=== PATIENT | male | born 1955 | race Two or more races ===

== ENCOUNTER 2016-12-02 21:05 | Observation (INO) | payer SELFPAY ==
--- NOTE | 2016-12-02 21:57 | EDPHY ---
H & P Stated Complaint: chest pain x1 hour HPI/ROS: HPI CHIEF COMPLAINT: Chest Pain HISTORY OF PRESENT ILLNESS: This patient is 61-year-old male, was in [place] he tells me he is up here visiting his cousin, he lives in [place], he tells me has significant past medical history of AFib, coronary artery disease with 1 stent in his LAD, on Coumadin, COPD on 3 L nasal cannula, CHF and takes Lasix, he presents to the emergency room tonight for chest discomfort he describes as a crushing chest pain left side of his chest that radiates to his left shoulder and down his left arm as well as his left jaw. Patient tells me that he took 3 nitroglycerin prior to arrival this did slightly improve his chest pain however it is still present. Past Medical History: AFib status post ablation, drug eluting stent in his LAD , coronary artery disease, CHF, COPD on 3 L nasal cannula, stomach CA, prostate CA Past Surgical History: Drug eluting stent to LAD, AFib ablation, left testicle removal Social History: lives in [place], states he is here visiting his cousin denies drugs, alcohol, tobacco products Family History: noncontributory ROS REVIEW OF SYSTEMS: A comprehensive 10 point review of systems is otherwise negative aside from elements mentioned in the history of present illness. Exam Constitutional triage nursing summary reviewed, vital signs reviewed, awake/ alert. Eyes normal conjunctivae and sclera, EOMI, PERRLA. HENT normal inspection, atraumatic, moist mucus membranes, no epistaxis, neck supple/ no meningismus, no raccoon eyes. Respiratory clear to auscultation bilaterally, normal breath sounds, no respiratory distress, no wheezing. Cardiovascular rate normal, regular rhythm, no murmur, no edema, distal pulses normal. Gastrointestinal soft, non-tender, no rebound, no guarding, normal bowel sounds, no distension, no pulsatile mass. Genitourinary no CVA tenderness. Musculoskeletal no midline vertebral tenderness, full range of motion, no calf swelling, no tenderness of extremities, no meningismus, good pulses, neurovascularly intact. Skin pink, warm, & dry, no rash, skin atraumatic. Neurologic awake, alert and oriented x 3, AAOx3, moves all 4 extremities equally, motor intact, sensory intact, CN II-XII intact, normal cerebellar, normal vision, normal speech. Psychiatric normal mood/affect. Heme/Lymph/Immune no lymphadenopathy. Differential diagnosis includes but is not limited to: ACS, atypical chest pain , pneumothorax, pneumonia, pulmonary embolism, aortic dissection, congestive heart failure, tumor, musculoskeletal pain, esophageal pain, GERD, peptic ulcer disease, pancreatitis Medical Decision Making: This patient had an IV established will obtain blood work, patient be put on a full diagnostic cardiac sonographer, patient be given full-dose aspirin and nitroglycerin for chest pain. Will obtain EKG to rule out acute coronary syndrome, he will need a chest x-ray blood work and troponin most likely this patient will need to be admitted as he is having discomfort in his chest that is consistent with angina and has underlying coronary artery disease. Re-evaluation: EKG interpretation by me on record in [employer] system. Impression time of EKG is 11/18/1936 this is sinus tachycardia this is a rate of 105, a Q-waves present in inferior leads consistent with an old injury, LVH is present I do not appreciate ST elevation. ED x-ray chest one view: Poor inspiratory effort, large left gastric bubble, otherwise no acute cardiopulmonary disease. 2325: At this time I spoke with the hospitalist service: they agreed to admit this patient for chest pain and serial enzymes and cardiac evaluation rule out. Here in the emergency room I have not found anything acute that explains his chest pain specifically his EKG is nonischemic, does not have acute coronary syndrome his troponin is negative. Did feel better after nitroglycerin. He has received full-dose aspirin here. He understands the be admitted to the telemetry floor. Source: Patient - Personal History Current Tetanus/Diphtheria Vaccine: Unsure Current Tetanus Diphtheria and Acellular Pertussis (TDAP): Unsure - Medical/Surgical History Hx Asthma: Yes Hx Chronic Respiratory Disease: Yes Hx Diabetes: No Hx Cardiac Disease: Yes Hx Renal Disease: No Hx Cirrhosis: No Hx Alcoholism: No Hx HIV/AIDS: No Hx Splenectomy or Spleen Trauma: No Other PMH: 3 [place], stent placed, ablasion 07/2016, stomach CA, prostate CA, left testical CA - Social History Smoking Status: Never smoked Constitutional: Initial Vital Signs Temperature (C) 36.3 C 12/02/16 21:09 Heart Rate 111 H 12/02/16 21:09 Respiratory Rate 18 12/02/16 21:09 Blood Pressure 111/82 H 12/02/16 21:09 O2 Sat (%) 93 12/02/16 21:09 O2 Delivery Mode Nasal Cannula O2 (L/minute) 3 Allergies/Adverse Reactions: azithromycin Allergy (Verified 12/02/16 21:12) diphenhydramine HCl [From Benadryl] Allergy (Verified 12/02/16 21:12) iodine Allergy (Verified 12/02/16 21:12) metoclopramide HCl [From Reglan] Allergy (Verified 12/02/16 21:12) Penicillins Allergy (Verified 12/02/16 21:12) shellfish derived Allergy (Verified 12/02/16 21:12) contrast dye Allergy (Uncoded 12/02/16 21:12) Home Medications: Medication Instructions Recorded Albuterol 12/02/16 Coumadin 12/02/16 Inderal LA 12/02/16 Lasix 12/02/16 Nebulizer 12/02/16 Plavix 12/02/16 Potassium 12/02/16 Medical Decision Making - Data Points Laboratory Results: Laboratory Results 12/02/16 22:15 12/02/16 22:15 12/02/16 22:15 WBC 9.80 H 10^3/uL (3.80-9.50) RBC 4.86 10^6/uL (4.40-6.38) Hgb 11.9 L g/dL (13.7-17.5) Hct 36.9 L % (40.0-51.0) MCV 75.9 L fL (81.5-99.8) MCH 24.5 L pg (27.9-34.1) MCHC 32.2 L g/dL (32.4-36.7) RDW 18.6 H % (11.5-15.2) Plt Count 269 10^3/uL (150-400) MPV 9.2 fL (8.7-11.7) Neut % (Auto) 66.7 % (39.3-74.2) Lymph % (Auto) 20.4 % (15.0-45.0) [place] % (Auto) 12.1 % (4.5-13.0) Eos % (Auto) 0.2 L % (0.6-7.6) Baso % (Auto) 0.2 L % (0.3-1.7) Nucleat RBC Rel Count 0.0 % (0.0-0.2) Absolute Neuts (auto) 6.53 H 10^3/uL (1.70-6.50) Absolute Lymphs (auto) 2.00 10^3/uL (1.00-3.00) Absolute Monos (auto) 1.19 H 10^3/uL (0.30-0.80) Absolute Eos (auto) 0.02 L 10^3/uL (0.03-0.40) Absolute Basos (auto) 0.02 10^3/uL (0.02-0.10) Absolute Nucleated RBC 0.00 10^3/uL (0-0.01) Immature Gran % 0.4 % (0.0-1.1) Immature Gran # 0.04 10^3/uL (0.00-0.10) PT 14.1 SEC (12.0-15.0) INR 1.10 (0.83-1.16) APTT 25.1 SEC (23.0-38.0) Sodium 142 mEq/L (134-144) Potassium 4.3 mEq/L (3.5-5.2) Chloride 110 mEq/L (97-110) Carbon Dioxide 23 mEq/l (22-31) Anion Gap 9 mEq/L (8-16) BUN 15 mg/dL (7-23) Creatinine 0.7 mg/dL (0.7-1.3) Estimated GFR > 60 Glucose 111 H mg/dL (70-100) Calcium 9.8 mg/dL (8.5-10.4) Magnesium 2.0 mg/dL (1.6-2.3) Total Bilirubin 0.5 mg/dL (0.1-1.4) Conjugated Bilirubin 0.3 mg/dL (0.0-0.5) Unconjugated Bilirubin 0.2 mg/dL (0.0-1.1) AST 52 IU/L (17-59) ALT 68 IU/L (21-72) Alkaline Phosphatase 95 IU/L (38-126) Creatine Kinase 40 IU/L (0-224) CK-MB (CK-2) Fraction 0.34 ng/mL (0-3.19) Troponin I < 0.012 ng/mL (0-0.034) NT-Pro-B Natriuret Pep 179 H pg/mL (0-125) Total Protein 7.3 g/dL (6.3-8.2) Albumin 3.7 g/dL (3.5-5.0) Lipase 71.0 IU/L (23-300) Medications Given: Discontinued Medications Aspirin (Aspirin) 324 mg PO EDNOW ONE Stop: 12/02/16 22:01 Last Admin: 12/02/16 22:45 Dose: 324 mg Sodium Chloride (Ns) 1,000 mls @ 0 mls/hr IV ONCE ONE PRN Reason: As Directed Stop: 12/02/16 22:01 Last Admin: 12/02/16 22:56 Dose: 1,000 mls Nitroglycerin (Nitrostat) 0.4 mg SL EDNOW ONE Stop: 12/02/16 22:59 Last Admin: 12/02/16 22:51 Dose: 0.4 mg Departure - Departure Disposition: [facility] Inpatient Acute Clinical Impression: Chest pain Qualifiers: Chest pain type: unspecified Qualifier Code: (R07.9) Chest pain, unspecified Condition: Fair
[2016-12-02] MEDS ORDERED: ASPIRIN 81 MG CHEWABLE TAB PO ONE (22:00)
[2016-12-02] MEDS ORDERED: NITROGLYCERIN 0.4 MG BTL SL PRN (22:00)
[2016-12-02] MEDS ORDERED: NS 1,000 ML IV ONE (22:00)
[2016-12-02 22:35] LABS: % IMMATURE GRANULYOCYTES 0.4 % (0.0-1.1); ABSOLUTE IMMATURE GRANULOCYTES 0.04 10^3/uL (0.00-0.10); ADD DIFF? NO; ADD MORPH? NO; ADD SCAN? NO; ATYPICAL LYMPHOCYTE FLAG 10 (0-99); FRAGMENT RBC FLAG 20 (0-99); HEMATOCRIT 36.9 % (40.0-51.0); HEMOGLOBIN 11.9 g/dL (13.7-17.5); LEFT SHIFT FLG 0 (0-99); LIPEMIA HEMOLYSIS FLAG 80 (0-99); MEAN CELL HEMOGLOBIN 24.5 pg (27.9-34.1); MEAN CELL HEMOGLOBIN CONCENTR. 32.2 g/dL (32.4-36.7); MEAN CELL VOLUME 75.9 fL (81.5-99.8); MEAN PLATELET VOLUME 9.2 fL (8.7-11.7); PLATELET CLUMPS FLAG 0 (0-99); PLATELET COUNT 269 10^3/uL (150-400); RED BLOOD CELL COUNT 4.86 10^6/uL (4.40-6.38); RED CELL DISTRIBUTION WIDTH 18.6 % (11.5-15.2)
[2016-12-02 22:47] LABS: INR 1.1 (0.83-1.16); PROTIME(PATIENT) 14.1 SEC (12.0-15.0)
[2016-12-02 22:48] LABS: ALANINE AMINOTRANSFERASE 68 IU/L (21-72); ALBUMIN 3.7 g/dL (3.5-5.0); ALKALINE PHOSPHATASE 95 IU/L (38-126); ANION GAP 9 mEq/L (8-16); APTT 25.1 SEC (23.0-38.0); ASPARTATE AMINOTRANSFERASE 52 IU/L (17-59); BILIRUBIN,TOTAL 0.5 mg/dL (0.1-1.4); BILIRUBIN-CONJUGATED 0.3 mg/dL (0.0-0.5); BILIRUBIN-UNCONJUGATED 0.2 mg/dL (0.0-1.1); CALCIUM 9.8 mg/dL (8.5-10.4); CARBON DIOXIDE 23 mEq/l (22-31); CHLORIDE 110 mEq/L (97-110); CREATININE 0.7 mg/dL (0.7-1.3); GLOMERULAR FILTRATION RATE > 60; GLUCOSE 111 mg/dL (70-100); POTASSIUM 4.3 mEq/L (3.5-5.2); SODIUM 142 mEq/L (134-144); TOTAL PROTEIN 7.3 g/dL (6.3-8.2)
[2016-12-02] MEDS ORDERED: NITROGLYCERIN 0.4 MG BTL SL ONE (22:58)
[2016-12-02 23:00] LABS: CREATINE KINASE-MB FRACTION 0.34 ng/mL (0-3.19); TROPONIN I < 0.012 ng/mL (0-0.034)
--- NOTE | 2016-12-02 23:22 | DX ---
AP Portable Chest December 02, 2016 Indication: Chest pain. Findings: There is significant decreased lung volume. There is atelectasis at both lung bases. No pneumonia. No effusion. Mediastinum is grossly normal. Bones are normal. Impression: Predominant abnormality is significant decreased lung volume.
[2016-12-03] MEDS ORDERED: ONDANSETRON DISINTEGRATING 4 MG TAB PO PRN (00:49)
[2016-12-03] MEDS ORDERED: ONDANSETRON 4 MG/2 ML VIAL IVP PRN (00:49)
[2016-12-03] MEDS ORDERED: ACETAMINOPHEN 325 MG TAB PO PRN (00:49)
--- NOTE | 2016-12-03 00:52 | PDGENHP ---
History and Physical - Chief Complaint "crushing left sided chest pain radiating to jaw and left arm" - History of Present Illness This is a 61 yo m who presents complaining of left sided chest pain radiating to his left arm and jaw. He states it only partially responded to 3 nitroglycerin he took at home prior to coming to the hospital. He states he has a history of CAD with a stent to the LAD complicated by in stent restenosis. He states this was performed in the last several months, in [place]. He states that he has not had follow up with a local routing clerk since then and that his medications are all prescribed by the doctor in [place]. He notes he also has a fib that has required ablation and coumadin but no other medications, and also has CHF, stomach and prostate cancer. He is in a wheelchair due to having multiple strokes with "left sided deficits". He states that the last stroke was a year ago. He is unable to give me any names of local doctors that he has seen other than his primary care doctor who he states was Dr. Rodriguez, and recently . He was noted to have multiple areas on his chest and arms where ecg stickers and bandages were recently placed. IV access was very difficult due to what appeared to be multiple prior IVs placed recently. I did then look up patient on [facility], and found that in the last month, which is the only time period for which we have records for him, he has been in different hospitals essentially continuously in [place] since 11/12. He was seen in [place] ER for chest pain on 11/12, discharged and went to [facility] same day for chest pain and was admitted at that time. His hospital course was complicated by in house stroke alert and he had a respiratory arrest following IV contrast reaction. He was discharged from [facility] on 11/18 and [facility]. There he was confronted after finding that he was admitted under one name, and had an implanted loop recorder that was under another name. He left there AMA on 11/21. On 11/23 he went to [facility] again with chest pain, and left there AMA on 11/28 after again being confronted with concerns that he is malingering. In these multiple stays he has had at least [address] , multiple stress tests including PET myocardium stress on 11/28, multiple MRIs requiring sedation and multiple echo's in just the last 3 weeks. He has gone under the names of Mahin Rodriguez, Alex Busch and Alex Ross in the last month. Loop is under the name Narayan. When confronted with all of this, he did not offer any explanation, but did offer that he understood why no aggressive testing would be performed and acknowledged understanding that if his next troponin was negative and no events occurred on ecg he would be discharged in the morning. History Information - Allergies/Home Medication List Allergies/Adverse Reactions: azithromycin Allergy (Verified 12/02/16 21:12) diphenhydramine HCl [From Benadryl] Allergy (Verified 12/02/16 21:12) iodine Allergy (Verified 12/02/16 21:12) metoclopramide HCl [From Reglan] Allergy (Verified 12/02/16 21:12) Penicillins Allergy (Verified 12/02/16 21:12) shellfish derived Allergy (Verified 12/02/16 21:12) contrast dye Allergy (Uncoded 12/02/16 21:12) Home Medications: Albuterol 12/02/16 [Last Taken Unknown] Coumadin 12/02/16 [Last Taken Unknown] Inderal LA 12/02/16 [Last Taken Unknown] Lasix 12/02/16 [Last Taken Unknown] Nebulizer 12/02/16 [Last Taken Unknown] Plavix 12/02/16 [Last Taken Unknown] Potassium 12/02/16 [Last Taken Unknown] I have personally reviewed and updated: family history, medical history, social history, surgical history - Past Medical History atrial fibrillation, coronary artery disease, cancer (stomach and prostate), CHF (most recent echo showing EF of 50-55%), CVA, hypertension, hyperlipidemia, liver disease (hepatitis C), psychiatric history (factitious disorder/ malingering) Additional medical history: it should be noted that all the medical history listed is limited by patients presumed malingering - Surgical History Reports: angioplasty Additional surgical history: left testicle removal. stomach "liposuction" for stomach cancer. prostate cancer "beads" - Family History Positive for: CAD - Social History Smoking Status: Never smoked Alcohol Use: None Drug Use: None Additional social history: suspect patient is homeless though he states he lives in [place] Review of Systems ROS: 10pt was reviewed & negative except for what was stated in HPI & below Physical Exam Temp Pulse Resp BP Pulse Ox 36.4 C 97 18 122/78 H 92 12/03/16 00:22 12/03/16 00:22 12/03/16 00:22 12/03/16 00:22 12/03/16 00:22 Constitutional: no apparent distress, chronically ill appearing Eyes: PERRL Ears, Nose, Mouth, Throat: moist mucous membranes Cardiovascular: regular rate and rhythym, no murmur, rub, or gallop Respiratory: no respiratory distress, no rales or rhonchi Gastrointestinal: normoactive bowel sounds, soft, non-tender abdomen Skin: warm Musculoskeletal: generalized weakness, No asymmetric calves Neurologic: AAOx3 Psychiatric: not anxious, flat affect, No thought process linear Lab Data & Imaging Review 12/02/16 22:15 12/02/16 22:15 WBC 9.80 10^3/uL (3.80-9.50) H 12/02/16 22:15 RBC 4.86 10^6/uL (4.40-6.38) 12/02/16 22:15 Hgb 11.9 g/dL (13.7-17.5) L 12/02/16 22:15 Hct 36.9 % (40.0-51.0) L 12/02/16 22:15 MCV 75.9 fL (81.5-99.8) L 12/02/16 22:15 MCH 24.5 pg (27.9-34.1) L 12/02/16 22:15 MCHC 32.2 g/dL (32.4-36.7) L 12/02/16 22:15 RDW 18.6 % (11.5-15.2) H 12/02/16 22:15 Plt Count 269 10^3/uL (150-400) 12/02/16 22:15 MPV 9.2 fL (8.7-11.7) 12/02/16 22:15 Neut % (Auto) 66.7 % (39.3-74.2) 12/02/16 22:15 Lymph % (Auto) 20.4 % (15.0-45.0) 12/02/16 22:15 [place] % (Auto) 12.1 % (4.5-13.0) 12/02/16 22:15 Eos % (Auto) 0.2 % (0.6-7.6) L 12/02/16 22:15 Baso % (Auto) 0.2 % (0.3-1.7) L 12/02/16 22:15 Nucleat RBC Rel Count 0.0 % (0.0-0.2) 12/02/16 22:15 Absolute Neuts (auto) 6.53 10^3/uL (1.70-6.50) H 12/02/16 22:15 Absolute Lymphs (auto) 2.00 10^3/uL (1.00-3.00) 12/02/16 22:15 Absolute Monos (auto) 1.19 10^3/uL (0.30-0.80) H 12/02/16 22:15 Absolute Eos (auto) 0.02 10^3/uL (0.03-0.40) L 12/02/16 22:15 Absolute Basos (auto) 0.02 10^3/uL (0.02-0.10) 12/02/16 22:15 Absolute Nucleated RBC 0.00 10^3/uL (0-0.01) 12/02/16 22:15 Immature Gran % 0.4 % (0.0-1.1) 12/02/16 22:15 Immature Gran # 0.04 10^3/uL (0.00-0.10) 12/02/16 22:15 PT 14.1 SEC (12.0-15.0) 12/02/16 22:15 INR 1.10 (0.83-1.16) 12/02/16 22:15 APTT 25.1 SEC (23.0-38.0) 12/02/16 22:15 Sodium 142 mEq/L (134-144) 12/02/16 22:15 Potassium 4.3 mEq/L (3.5-5.2) 12/02/16 22:15 Chloride 110 mEq/L (97-110) 12/02/16 22:15 Carbon Dioxide 23 mEq/l (22-31) 12/02/16 22:15 Anion Gap 9 mEq/L (8-16) 12/02/16 22:15 BUN 15 mg/dL (7-23) 12/02/16 22:15 Creatinine 0.7 mg/dL (0.7-1.3) 12/02/16 22:15 Estimated GFR > 60 12/02/16 22:15 Glucose 111 mg/dL (70-100) H 12/02/16 22:15 Calcium 9.8 mg/dL (8.5-10.4) 12/02/16 22:15 Magnesium 2.0 mg/dL (1.6-2.3) 12/02/16 22:15 Total Bilirubin 0.5 mg/dL (0.1-1.4) 12/02/16 22:15 Conjugated Bilirubin 0.3 mg/dL (0.0-0.5) 12/02/16 22:15 Unconjugated Bilirubin 0.2 mg/dL (0.0-1.1) 12/02/16 22:15 AST 52 IU/L (17-59) 12/02/16 22:15 ALT 68 IU/L (21-72) 12/02/16 22:15 Alkaline Phosphatase 95 IU/L (38-126) 12/02/16 22:15 Creatine Kinase 40 IU/L (0-224) 12/02/16 22:15 CK-MB (CK-2) Fraction 0.34 ng/mL (0-3.19) 12/02/16 22:15 Troponin I < 0.012 ng/mL (0-0.034) 12/02/16 22:15 NT-Pro-B Natriuret Pep 179 pg/mL (0-125) H 12/02/16 22:15 Total Protein 7.3 g/dL (6.3-8.2) 12/02/16 22:15 Albumin 3.7 g/dL (3.5-5.0) 12/02/16 22:15 Lipase 71.0 IU/L (23-300) 12/02/16 22:15 Visualized and Interpreted Chest x-ray results: Yes Chest X-Ray results: no infiltrate Visualized and Interpreted EKG results: Yes EKG Interpretation: Positive for: normal sinsus rhythm Assessment & Plan Assessment: Chest pain (Acute) Malingerer (Acute) 61 yo M with PMH of malingering and possible CAD presenting with chest pain # chest pain: at least the 5th such presentation in the last month and patient does not admit to having been seen at any other facility in [place] recently. Will not pursue aggressive w/u given multiple extensive workups in the last month. Will monitor overnight on tele and obtain 1 further trop. 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 He did have recent psychiatric evaluation at [facility] with this being the likely dx established at that time. # cad: again, unclear if this is a true diagnosis, states he has stent to LAD but no e/o anterior ischemia on ecg. Monitoring overnight # a fib: states he is on coumadin for this but INR 1, will not resume AC # "chf": most recent echo with normal ef, no e/o chf on exam # cva: per patient has residual left sided deficits, last hospitalization was complaining of right sided weakness, has had 2 in house stroke alerts called on recent hospitalizations and multiple MRIs of brain/c/t/l spine requiring sedation. Has had nsg consultation as well as neurology consult as recently as --they note his exam is inconsistent and imaging not supportive of his claims either. Recent MRI brain does not show e/o stroke either. # dispo: observation status Patient new to my care. Records from [facility] extensively reviewed and summarized as above. Care plan reviewed with ER doctor as above.
--- NOTE | 2016-12-03 06:42 | CPEKG ---
Heart Rate: 90 RR Interval: 667 P-R Interval: 148 QRSD Interval: 88 QT Interval: 384 QTC Interval: 470 P Shaw: 15 QRS Shaw: -37 T Wave Shaw: 41 EKG Severity - OTHERWISE NORMAL ECG - EKG Impression: SINUS RHYTHM EKG Impression: LEFT AXIS DEVIATION Electronically Signed By: Disha Alvarez 03-Dec-2016 07:29:07
[2016-12-03 07:38] VITALS: BP 109/66; PULSE 80; RESP 17; TEMP 98.4; O2SAT 93
--- NOTE | 2016-12-03 22:21 | GDS ---
[f rep st] DISCHARGE SUMMARY DISCHARGE DIAGNOSES: 1. Chest pain. 2. Reported history of coronary artery disease. 3. Reported history of congestive heart failure. 4. Atrial fibrillation. 5. History of cerebrovascular accident. 6. Hypertension. 7. Hyperlipidemia. 8. Hepatitis C. 9. Factitious disorder and malingering. HISTORY OF PRESENT ILLNESS: This is a 61-year-old male who presents with complaints of chest pain. For details of the patient's initial presentation, please see the history and physical dated 12/02/19 17. CONSULTATIVE SERVICES: None. PROCEDURES: None. HOSPITAL COURSE BY ISSUE: 1. Chest pain. The patient has an unusual history of accessing care nearly daily at various hospita ls since November 12, 2016. Upon thorough review of the medical records that were assessable, Dr. Mirella dixon established that the patient had been seen at either in the ER and patient admitted for chest pain nearly daily for the preceding 2 weeks. He has had multiple CT scans, multiple myocardial stres s tests, multiple transthoracic echocardiograms. The patient was admitted, had serial troponins, neg ative telemetry monitoring, and EKGs. He is being discharged without additional testing item. 2. Malingering/factitious disorder. The patient has presented under several names, including Noreen Rodriguez, Mahin Shell, Alex Ross. It appears with the loop recorder that he has had inst alled is under Alex Shell. The patient was not provided narcotic pain medications or any additi onal prescriptions. He has been recommended to follow with his outpatient provider. MEDICATIONS AT TIME OF DISPOSITION: Please reference medication reconciliation printed on 10/02/2017 . Of note, no changes were made to his reported home medication list, though we have suspicion he is not taking many of these medications, as is INR was 1.1 at presentation. FOLLOWUP: Followup appointments include with his outpatient primary care provider. PENDING STUDIES AT TIME OF DICTATION: None. TIME SPENT: I spent greater than 30 minutes in the planning and coordination of this discharge. /[id number]
== END 2016-12-03 10:20 | disposition home or self-care (01) ==
LOC: F2W 12-03 00:09
PROVIDERS: ADMIT Internal Medicine; ATTEND Internal Medicine
DX: R07.9 Chest pain, unspecified (principal); I25.10 Atherosclerotic heart disease of native coronary artery without angina pectoris; I50.9 Heart failure, unspecified; I48.91 Unspecified atrial fibrillation; I10 Essential (primary) hypertension; E78.5 Hyperlipidemia, unspecified; B19.20 Unspecified viral hepatitis C without hepatic coma; F68.11 Factitious disorder imposed on self, with predominantly psychological signs and symptoms; J44.9 Chronic obstructive pulmonary disease, unspecified; Z85.028 Personal history of other malignant neoplasm of stomach; Z85.46 Personal history of malignant neoplasm of prostate; Z85.47 Personal history of malignant neoplasm of testis; Z88.0 Allergy status to penicillin; Z86.73 Personal history of transient ischemic attack (TIA), and cerebral infarction without residual deficits; Z95.5 Presence of coronary angioplasty implant and graft; Z79.01 Long term (current) use of anticoagulants
CPT/HCPCS: G0378